=== PATIENT | male | born 1975 | race Hispanic/Latino ===

== ENCOUNTER 2016-04-03 17:34 | Emergency (ER) | payer MEDICARE ==
[2016-04-03 18:43] LABS: Basophils % (Auto) 0.8 % (0.0-1.8); Eosinophils % (Auto) 4.7 % (0.0-4.3); Hematocrit 38.6 % (35.5-45.6); Hemoglobin 12.6 gm/dl (11.8-15.2); Mean Corpuscular HGB Conc 33 % (32-34); Mean Corpuscular Hemoglobin 31 pg (28-32); Mean Corpuscular Volume 94 fl (84-94); Platelet Count 164 K/mm3 (140-440); Red Blood Count 4.11 M/mm3 (3.65-5.03); Red Cell Distribution Width 13.8 % (13.2-15.2); White Blood Count 6.6 K/mm3 (4.5-11.0)
[2016-04-03 18:43] LABS: Urine Drugs of Abuse Note Disclamer
[2016-04-03 19:03] LABS: Anion Gap 14 mmol/L; BUN/Creatinine Ratio 17.27; Blood Urea Nitrogen 19 mg/dL (9-20); Carbon Dioxide 30 mmol/L (22-30); Chloride 101.1 mmol/L (98-107); Glucose 92 mg/dL (75-100); Potassium 4.5 mmol/L (3.6-5.0); Sodium 141 mmol/L (137-145)
[2016-04-03 19:29] LABS: Bilirubin,Urine NEG (Negative); Blood,Urine NEG (Negative); Ketones,Urine TR mg/dL (Negative); Leukocyte Esterase,Urine NEG (Negative); Mucus,Urine FEW /HPF; Nitrite,Urine NEG (Negative); Protein,Urine <15 mg/dL mg/dL (Negative)
--- NOTE | 2016-04-03 21:06 | Emergency Department Report ---
ED Psych HPI - General Chief Complaint: Psych Stated Complaint: MH Time Seen by Provider: 04/03/16 20:13 Source: patient Mode of arrival: Ambulatory Limitations: No Limitations - History of Present Illness Initial Comments: 41-year-old male with a past medical history diabetes, schizophrenia, seizure disorder, and pacemaker presents to the hospital complains of chronic behavior at his residential. Patient states he suspects that the residential staff and stealing his money and admits to a violent outbursts that involved throwing things around the house. Patient denies suicidal, homicidal ideation or psychosis. No physical complaints reported. Patient states he takes the medications he is given by the residential. - Related Data Home Medications Medication Instructions Recorded Confirmed Last Taken Bumetanide (Nf) [Bumex] 0.5 mg PO BID 07/25/15 01/13/16 Unknown Divalproex ER [DepaKOTE ER] 1,000 mg PO QDAY 07/25/15 01/13/16 Unknown Metoprolol Xl [Metoprolol 50 mg PO BID 07/25/15 01/13/16 Unknown SUCCINATE ER TAB] Omeprazole [PriLOSEC] 40 mg PO QDAY 07/25/15 01/13/16 Unknown Pravastatin Sodium [Pravastatin] 40 mg PO QHS 07/25/15 01/13/16 Unknown Temazepam 15 mg PO QHS 07/25/15 01/13/16 Unknown Temazepam 60 mg PO BID PRN 07/25/15 01/13/16 Unknown Tolnaftate [Tinactin] 150 gm TP BID 07/25/15 01/13/16 Unknown Trihexyphenidyl [Artane] 2 mg PO BID 07/25/15 01/13/16 Unknown Venlafaxine HCl [Effexor Xr] 150 mg PO QDAY 07/25/15 01/13/16 Unknown Ziprasidone [Geodon] 60 mg PO BID 07/25/15 01/13/16 Unknown clonazePAM [Klonopin] 1 mg PO QHS 07/25/15 01/13/16 Unknown levETIRAcetam [Keppra TAB] 250 mg PO BID 07/25/15 01/13/16 Unknown Allergies Allergy/AdvReac Type Severity Reaction Status Date / Time No Known Allergies Allergy Verified 07/25/15 18:06 ED Review of Systems ROS: Stated complaint: MH Other details as noted in HPI Comment: All other systems reviewed and negative Other: Constitutional: No fevers chills Eyes: No eye pain ENT: No ear pain Neck: Denies pain Respiratory: Denies cough shortness of breath Cardiovascular: Denies chest pain GI: Denies abdominal pain, nausea, vomiting : Denies dysuria Musculoskeletal: Denies back pain Skin: Denies rash, lesions, erythema Neurologic: Denies headache, numbness, weakness Psychiatric: Denies suicidal ideation, hallucinations ED Past Medical Hx - Past Medical History Previous Medical History?: Yes Hx Diabetes: Yes Hx Seizures: Yes Hx Psychiatric Treatment: Yes (schizophrenia) - Surgical History Past Surgical History?: Yes Hx Pacemaker: Yes - Social History Smoking Status: Unknown if ever smoked Substance Use Type: None - Medications Home Medications: Home Medications Medication Instructions Recorded Confirmed Last Taken Type Bumetanide (Nf) [Bumex] 0.5 mg PO BID 07/25/15 01/13/16 Unknown History Divalproex ER [DepaKOTE ER] 1,000 mg PO QDAY 07/25/15 01/13/16 Unknown History Metoprolol Xl [Metoprolol 50 mg PO BID 07/25/15 01/13/16 Unknown History SUCCINATE ER TAB] Omeprazole [PriLOSEC] 40 mg PO QDAY 07/25/15 01/13/16 Unknown History Pravastatin Sodium [Pravastatin] 40 mg PO QHS 07/25/15 01/13/16 Unknown History Temazepam 15 mg PO QHS 07/25/15 01/13/16 Unknown History Temazepam 60 mg PO BID PRN 07/25/15 01/13/16 Unknown History Tolnaftate [Tinactin] 150 gm TP BID 07/25/15 01/13/16 Unknown History Trihexyphenidyl [Artane] 2 mg PO BID 07/25/15 01/13/16 Unknown History Venlafaxine HCl [Effexor Xr] 150 mg PO QDAY 07/25/15 01/13/16 Unknown History Ziprasidone [Geodon] 60 mg PO BID 07/25/15 01/13/16 Unknown History clonazePAM [Klonopin] 1 mg PO QHS 07/25/15 01/13/16 Unknown History levETIRAcetam [Keppra TAB] 250 mg PO BID 07/25/15 01/13/16 Unknown History ED Physical Exam - General Limitations: Other - Other Other exam information: General: No limitations, patient is alert in no acute distress Head exam: Atraumatic, normocephalic Eyes exam: Normal appearance, pupils equal reactive to light, extraocular movements intact ENT: Moist mucous membrane, normal oropharynx Neck exam: Normal inspection, full range of motion, no meningismus nontender Respiratory exam: Clear to auscultation bilateral, no wheezes, rales, crackles Cardiovascular: Normal rate and rhythm, normal heart sounds Abdomen: Soft, nondistended, and nontender, with normal bowel sounds, no rebound, or guarding Extremity: Full range of motion normal inspection no deformity Back: Normal Inspection, full range of motion, no tenderness Neurologic: Alert, oriented x3, cranial nerves intact, no motor or sensory deficit Psychiatric: normal affect, normal mood Skin: Warm, dry, intact ED Course Vital Signs 04/03/16 04/03/16 17:48 18:42 Temperature 98.1 F Pulse Rate 90 Respiratory 16 22 Rate Blood Pressure 122/71 O2 Sat by Pulse 98 99 Oximetry - Reevaluation(s) Reevaluation #1: 04/03/16 23:12 Patient remained stable and cooperative in the ED. - Consultations Consultation #1: 04/03/16 21:05 Mental health mental health evaluation ordered ED Medical Decision Making - Lab Data Result diagrams: 04/03/16 18:20 04/03/16 18:20 Lab Results 04/03/16 04/03/16 04/03/16 Range/Units 18:20 18:20 18:20 WBC 6.6 (4.5-11.0) K/mm3 RBC 4.11 (3.65-5.03) M/mm3 Hgb 12.6 (11.8-15.2) gm/dl Hct 38.6 (35.5-45.6) % MCV 94 (84-94) fl MCH 31 (28-32) pg MCHC 33 (32-34) % RDW 13.8 (13.2-15.2) % Plt Count 164 (140-440) K/mm3 Lymph % (Auto) 35.0 (13.4-35.0) % Andrews % (Auto) 10.4 H (0.0-7.3) % Eos % (Auto) 4.7 H (0.0-4.3) % Baso % (Auto) 0.8 (0.0-1.8) % Lymph # 2.3 (1.2-5.4) K/mm3 Andrews # 0.7 (0.0-0.8) K/mm3 Eos # 0.3 (0.0-0.4) K/mm3 Baso # 0.1 (0.0-0.1) K/mm3 Seg Neutrophils % 49.1 (40.0-70.0) % Seg Neutrophils # 3.3 (1.8-7.7) K/mm3 Sodium 141 (137-145) mmol/L Potassium 4.5 (3.6-5.0) mmol/L Chloride 101.1 (98-107) mmol/L Carbon Dioxide 30 (22-30) mmol/L Anion Gap 14 mmol/L BUN 19 (9-20) mg/dL Creatinine 1.1 (0.8-1.5) mg/dL Estimated GFR > 60 ml/min BUN/Creatinine Ratio 17.27 % Glucose 92 (75-100) mg/dL Calcium 9.0 (8.4-10.2) mg/dL Urine Color (Yellow) Urine Turbidity (Clear) Urine pH (5.0-7.0) Ur Specific [place] (1.003-1.030) Urine Protein (Negative) mg/dL Urine Glucose (UA) (Negative) mg/dL Urine Ketones (Negative) mg/dL Urine Blood (Negative) Urine Nitrite (Negative) Urine Bilirubin (Negative) Urine Urobilinogen (<2.0) mg/dL Ur Leukocyte Esterase (Negative) Urine WBC (Auto) (0.0-6.0) /HPF Urine RBC (Auto) (0.0-6.0) /HPF Calcium Oxalate Crystal Urine Mucus /HPF Urine Opiates Screen Urine Methadone Screen Ur Barbiturates Screen Valproic Acid (50-100) ug/mL Ur Phencyclidine Scrn Ur Amphetamines Screen U Benzodiazepines Scrn Urine Cocaine Screen U Marijuana (THC) Screen Drugs of Abuse Note Plasma/Serum Alcohol < 0.01 (0-0.07) gm% 04/03/16 04/03/16 04/03/16 Range/Units 18:30 18:30 20:14 WBC (4.5-11.0) K/mm3 RBC (3.65-5.03) M/mm3 Hgb (11.8-15.2) gm/dl Hct (35.5-45.6) % MCV (84-94) fl MCH (28-32) pg MCHC (32-34) % RDW (13.2-15.2) % Plt Count (140-440) K/mm3 Lymph % (Auto) (13.4-35.0) % Andrews % (Auto) (0.0-7.3) % Eos % (Auto) (0.0-4.3) % Baso % (Auto) (0.0-1.8) % Lymph # (1.2-5.4) K/mm3 Andrews # (0.0-0.8) K/mm3 Eos # (0.0-0.4) K/mm3 Baso # (0.0-0.1) K/mm3 Seg Neutrophils % (40.0-70.0) % Seg Neutrophils # (1.8-7.7) K/mm3 Sodium (137-145) mmol/L Potassium (3.6-5.0) mmol/L Chloride (98-107) mmol/L Carbon Dioxide (22-30) mmol/L Anion Gap mmol/L BUN (9-20) mg/dL Creatinine (0.8-1.5) mg/dL Estimated GFR ml/min BUN/Creatinine Ratio % Glucose (75-100) mg/dL Calcium (8.4-10.2) mg/dL Urine Color Tegan (Yellow) Urine Turbidity Clear (Clear) Urine pH 5.0 (5.0-7.0) Ur Specific [place] 1.032 H (1.003-1.030) Urine Protein <15 mg/dl (Negative) mg/dL Urine Glucose (UA) Neg (Negative) mg/dL Urine Ketones Tr (Negative) mg/dL Urine Blood Neg (Negative) Urine Nitrite Neg (Negative) Urine Bilirubin Neg (Negative) Urine Urobilinogen 2.0 (<2.0) mg/dL Ur Leukocyte Esterase Neg (Negative) Urine WBC (Auto) 1.0 (0.0-6.0) /HPF Urine RBC (Auto) 6.0 (0.0-6.0) /HPF Calcium Oxalate Crystal 1+ Urine Mucus Few /HPF Urine Opiates Screen Presumptive negative Urine Methadone Screen Presumptive negative Ur Barbiturates Screen Presumptive negative Valproic Acid 60.9 (50-100) ug/mL Ur Phencyclidine Scrn Presumptive positive Ur Amphetamines Screen Presumptive negative U Benzodiazepines Scrn Presumptive negative Urine Cocaine Screen Presumptive negative U Marijuana (THC) Screen Presumptive negative Drugs of Abuse Note Disclamer Plasma/Serum Alcohol (0-0.07) gm% - Medical Decision Making Patient was seen and evaluated by mental health rn advanced. Please the patient does not meet 1013 criteria remains cooperative in the ED. It appears that patient just needs a new place to stay. Patient will be discharged home and case management consult will be ordered for placement help. - Differential Diagnosis psychosis, schizophrenia, paranoia Critical Care Time: No Critical care attestation.: If time is entered above; I have spent that time in minutes in the direct care of this critically ill patient, excluding procedure time. ED Disposition Clinical Impression: Behavior disturbance, Lives in residential Schizophrenia Qualifiers: Schizophrenia type: unspecified Qualified Code(s): F20.9 - Schizophrenia, unspecified Disposition: DISCHARGED TO HOME OR SELFCARE Is pt being admited?: No Does the pt Need Aspirin: No Condition: Stable Instructions: Schizophrenia (ED) Additional Instructions: Continue current medication as prescribed. Follow-up with your psychiatrist is or the clinic provided. Referrals: [facility] [Outside] - 3-5 Days Time of Disposition: 23:15
[2016-04-04 00:16] VITALS: BP 107/67
== END 2016-04-04 00:06 | disposition home or self-care (01) ==
LOC: EEVIPCON 17:34 → ED 17:34
DX: F20.9 Schizophrenia, unspecified (principal); F91.9 Conduct disorder, unspecified; E11.9 Type 2 diabetes mellitus without complications; Z95.0 Presence of cardiac pacemaker
CPT/HCPCS: 36415; 80048; 80164; 80307; 81001; 85025; 99284; G0480; 80320